=== PATIENT | male | born 1980 | race Caucasian/White ===

== ENCOUNTER 2024-12-12 15:41 | Emergency (ER) | payer SELFPAY ==
[2024-12-12 16:05] VITALS: BP 152/104
[2024-12-12 16:22] LABS: Urine Albumin 1+ (Neg - Trace); Urine Bilirubin Negative (Negative); Urine Character Clear (Clear); Urine Color Yellow; Urine Glucose Negative (Negative); Urine Ketone 2+ (Negative); Urine Leukocyte 1+ (Negative); Urine Nitrite Negative (Negative); Urine Occult Blood 4+ (Negative); Urine Urobilinogen Negative (Neg - 1+)
[2024-12-12 16:23] LABS: % Basophils 0.4 % (0-2); % Eosinophils 0.7 % (0-6); % Immature Granulocytes 0.3 % (0-0.5); % Lymphocytes 16.6 % (20.5-51.1); % Monocytes 7.9 % (1.7-9.3); % Neutrophils 74.1 % (42.2-75.2); Absolute Eosinophils 0.1 10^3/uL (0-0.7); Absolute Lymphocytes 1.5 10^3/uL (1.2-3.4); Absolute Monocytes 0.7 10^3/uL (0.1-0.6); Absolute Neutrophils 6.7 10^3/uL (1.4-6.5); Hematocrit 43.5 % (39.0-52.0); Hemoglobin 15.4 g/dL (13.0-18.0); Mean Corp Hgb Conc. 35.4 g/dL (33.0-37.0); Mean Corpuscular Hgb 33.8 pg (27.0-31.0); Mean Corpuscular Volume 95.6 fL (80.0-94.0); Mean Platelet Volume 9.5 fL (7.4-10.4); Nucleated Red Blood Cells % 0 % (-); Platelet Count 208 10^3/uL (130-400); Red Blood Cell Count 4.55 10^6/uL (4.70-6.10); Red Cell Dist. Width 12.2 % (11.5-14.5)
[2024-12-12 16:37] LABS: Urine Squamous Cell 0-2 /LPF (Few)
[2024-12-12 16:37] LABS: ALT (SGPT) 29 U/L (0-50); AST (SGOT) 29 U/L (17-59); Alkaline Phosphatase 84 U/L (38-126); Blood Urea Nitrogen 16 mg/dl (9-20); Calcium 10.3 mg/dl (8.4-10.2); Carbon Dioxide 25 mmol/L (22-30); Chloride 102 mmol/L (98-107); Glucose 111 mg/dl (70-99); Lipase 36 U/L (23-300); Potassium 4.5 mmol/L (3.5-5.1); Sodium 138 mmol/L (135-145); Total Bilirubin 0.9 mg/dl (0.2-1.3); eGFR > 60.00
[2024-12-12 16:38] LABS: Urine White Cell 0-2 /HPF (0-5)
[2024-12-12 16:39] LABS: Urine Bacteria Few (Negative); Urine Mucus Moderate; Urine Red Blood Cell 70-80 /HPF (0-2)
[2024-12-12] MEDS: TORADOL 15 MG IV (22:26)
[2024-12-12] MEDS: FLOMAX 0.4 MG PO (22:27)
[2024-12-12] MEDS: NSS 500 IV (22:28)
--- NOTE | 2024-12-12 22:32 | ED.GENMED ---
History of Present Illness
General
Chief Complaint: Abdominal Pain
Source: patient
Exam Limitations: none
Time Seen by Provider: 12/12/24 22:10
History of Present Illness
History of Present Illness:
44-year-old male with history of kidney stones who presents with pain in the right lower quadrant radiating to the back. He states for started twinge with Sunday. For last couple days been off and on but today the pain was worse. The pain on my
evaluation is there but is little better. Has been nauseous intermittently as well. No vomiting. States last time he had a kidney stone was more severe and acute. No fevers.
Past History
Past History
ED Past Medical History: Other (Kidney stones)
ED Past Surgical History: Tonsilectomy
Phy Exam
Physical Exam
Physical Exam:
CONSTITUTIONAL Patient alert and oriented to person, place and time. Well-appearing. Vital signs reviewed.
HEAD atraumatic, normocephalic.
EYES eyelids normal to inspection, Extraocular muscles intact, Conjunctiva normal, Sclera normal.
NECK normal range of motion, Trachea midline, no jugular venous distention.
RESPIRATORY CHEST No respiratory distress noted, Chest expansion equal,
ABDOMEN mild right lower quadrant tenderness, Bowel sounds normal. No distention.
BACK normal inspection, no obvious deformities
UPPER EXTREMITY range of motion normal, Motor strength normal, no cyanosis, no edema.
LOWER EXTREMITY range of motion normal, Motor strength normal, no cyanosis, no edema.
NEURO Speech normal, No focal motor deficits, Riley coma scale 15, Memory normal, Cranial Nerves intact to screening exam.
SKIN skin warm, dry, and normal in color.
Course
Orders/Labs/Results
Orders:
Orders
12/12/24 11:14
Urinalysis Reflex To Culture Urgent
Date Specimen was Collected: 12/12/24
Time Specimen was Collected: 16:10
Urine Microscopic Reflex Cult Urgent
Urine Culture Urgent
ESTHER Source: U
Specimen Description:
Date Specimen was Collected: 12/12/24
Time Specimen was Collected: 16:10
12/12/24 16:14
Complete Blood Count/With Diff Urgent
Comprehensive Metabolic Panel Urgent
Lipase Urgent
12/12/24 19:45
CT Abd/Pel (IV only)-DH only Urgent
Comment:
Reason For Exam: rlq
12/12/24 22:17
Ketorolac [Toradol] 15 mg IV NOW STA
12/12/24 22:18
0.9% Sodium Chloride 500 ml [Nss] 500 ml IV BOLUS
12/12/24 22:19
Vital Signs- Treatment ONCE
Frequency: Once
Tamsulosin [Flomax] 0.4 mg PO NOW STA
Abnormal Lab Results
12/12/24 12/12/24
11:14 16:14
RBC 4.55 L 10^6/uL
(4.70-6.10)
MCV 95.6 H fL
(80.0-94.0)
MCH 33.8 H pg
(27.0-31.0)
Absolute Neuts (auto) 6.7 H 10^3/uL
(1.4-6.5)
Absolute Monos (auto) 0.7 H 10^3/uL
(0.1-0.6)
Lymphocytes % 16.6 L %
(20.5-51.1)
Glucose 111 H mg/dl
(70-99)
Calcium 10.3 H mg/dl
(8.4-10.2)
Urine Ketones 2+ A
(Negative)
Ur Occult Blood Reflex 4+ A
(Negative)
Leukocyte Esterase Rfl 1+ A
(Negative)
Urine RBC 70-80 A /HPF
(0-2)
Urine Bacteria (Reflex) Few A
(Negative)
Urine Albumin (Reflex) 1+ A
(Neg - Trace)
12/12/24 16:14
12/12/24 16:14
Vital Signs
Initial and Last Documented VS:
Initial Vital Signs
Temp Pulse Resp BP Pulse Ox
99.2 F 86 16 152/104 99
12/12/24 16:05 12/12/24 16:05 12/12/24 16:05 12/12/24 16:05 12/12/24 16:05
Last Documented Vital Signs
Temp Pulse Resp BP Pulse Ox
99.2 F 86 16 152/104 99
12/12/24 16:05 12/12/24 16:05 12/12/24 16:05 12/12/24 16:05 12/12/24 16:05
MDM/Problems Addressed
MDM/Problems Addressed:
Nephrolithiasis
*Radiology
Radiology exam reviewed: radiology read reviewed
*Pulse Oximetry
Patient hypoxic: no
*Critical Care Note
Total Time (30-74mins, 75-104mins- exclusive of procedures): Not Applicable
Data Reviewed
Source: patient
Prescriptions/Medications Considered But Not Given:
Consider antibiotics but no gross evidence of urine tract infection
Patient Management
Escalation/DeEscalation of care consider admission/obs:
Symptoms have resolved. Feels much better. Strainer given. Flomax, NSAIDs, pain control and outpatient follow-up
ED Attending Note
-
Portions of this chart may have been created with voice recognition software.� Occasional wrong word or��sound alike� substitutions may have occurred due to the inherent limitations of voice recognition software.
Discharge Plan
Departure
Patient Disposition: Home (Routine Discharge)
Date of Disposition: 12/12/24
Time of Disposition: 23:07
Patient with high blood pressure during this ER visit?: Yes
Discharge Problem:
Nephrolithiasis
Instructions: Kidney Stones (DC), BLOOD PRESSURE
Prescriptions:
New
tamsulosin [Flomax] 0.4 mg capsule
0.4 mg PO HS Qty: 14 0RF
hydrocodone-acetaminophen 5-325 mg tablet
2 tab PO Q6H PRN (Reason: Pain) Qty: 10 0RF
Referrals:
Alexi Schafer MD [Active] -
Activity Restrictions/Additional Instructions:
Please drink plenty fluids and strain your urine to see if you can pass your stone. Please see your doctor or urology in the next 1 week if symptoms persist. Return immediate for fevers, intractable vomiting, worsening symptoms or any other
concerns.
Interventions
Interventions:
*Risk Screen - Suicide Last Done: 12/12/24 16:05
*General Assessment Last Done: 12/12/24 16:05
*Neglect/Abuse Screening Last Done: 12/12/24 16:05
*ED COVID-19 Vaccine History Last Done: 12/12/24 16:05
Discharge Date and Time
Print Language: PANAMANIAN
[2024-12-12 23:15] VITALS: BP 150/96
== END 2024-12-12 23:29 | disposition home or self-care (01) ==
LOC: EMR 15:41
PROVIDERS: Emergency Medicine; EMERGENCY PHYSICIAN Emergency Medicine; FAMILY PHYSICIAN Family Medicine
DX: N13.2 Hydronephrosis with renal and ureteral calculous obstruction (principal); Z87.442 Personal history of urinary calculi
CPT/HCPCS: 99284; 96374; 74177; 80053; 81003; 81015; 83690; 85025; 87086; Q9967